=== PATIENT | female | born 1995 | race Caucasian/White ===

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

== ENCOUNTER 2017-08-23 08:55 | Outpatient (CLI) | END 2017-08-23 10:05 | disposition home or self-care (01) ==

== ENCOUNTER 2017-09-01 23:41 | Inpatient (IN) | END 2017-09-03 15:08 | disposition home or self-care (01) | DRG 775 ==

== ENCOUNTER 2018-11-30 10:04 | Emergency (ER) | payer OTHER ==
[~2018-11-30] VITALS: Wt 72.0 kg
[~2018-11-30 10:04] MED LIST: PREN-93 PO
[2018-11-30] MEDS ORDERED: SOD CHLORIDE 0.9% 1,000 ML IV STA (10:56)
[2018-11-30] MEDS ORDERED: METOCLOPRAMIDE 10 MG INJ IV STA (10:56)
[2018-11-30 14:13] VITALS: BP 117/75; PULSE 107; RESP 17
[2018-11-30] MEDS ORDERED: ACETAMINOPHEN 500 MG TAB PO STA (14:15)
[2018-11-30] MEDS ORDERED: ACET500C5 PO (14:16)
[2018-11-30] MEDS ORDERED: METO10TA92 PO (14:17)
--- NOTE | 2018-11-30 14:30 | ERD ---
ER Documentation Chief Complaint Chief Complaint NAUSEA WITH VOMITING X 3 DAYS; 13 WEEKS PREG HPI Patient is a 23-year-old female, G3, P2, approximately 13 weeks , who presents to the ER for concerns of nausea and vomiting which started 3 days ago. Patient's children are also being seen today for similar symptoms. Patient daughter also has diarrhea. Patient has a fevers or chills. Patient states she has trouble keeping fluids down secondary to vomiting. Patient denies any vaginal bleeding. Patient denies any fluid loss. Patient denies any chest pain, shortness of breath, recent travel, recent surgeries. Patient states she has been feeling her heart racing for the last 2 days. Does not recall the name of her [employer]. ROS All systems reviewed and are negative except as per history of present illness. Medications Home Meds Active Scripts Metoclopramide* (Reglan*) 10 Mg Tablet, 10 MG PO Q6 PRN for NAUSEA AND/OR VOMITING, #10 TAB Prov:SAE OLIVAS PA-C 11/30/18 Acetaminophen* (Tylophen*) 500 Mg Capsule, 1 CAP PO Q6H PRN for PAIN AND OR ELEVATED TEMP, #20 CAP Prov:SAE OLIVAS PA-C 11/30/18 Reported Medications Vit No.124/Iron/FA ( Vitamin Tablet) 1 Each Tablet, 1 EACH PO DAILY, TAB 08/23/17 Allergies Allergies: Coded Allergies: Penicillins (Verified Allergy, Unknown, 09/01/17) PMhx/Soc Medical and Surgical Hx: pt denies Surgical Hx Hx Respiratory Disorders: Yes (ASTHMA) Hx Alcohol Use: No Hx Substance Use: No Hx Tobacco Use: No FmHx Family History: No diabetes Physical Exam Vitals Vital Signs Date Temp Pulse Resp B/P (MAP) Pulse Ox O2 O2 Flow FiO2 Time Delivery Rate 11/30/18 98.7 107 17 117/75 100 Room Air 14:13 (89) 11/30/18 99.6 118 13:40 11/30/18 99.2 13:20 11/30/18 100.0 132 18 132/78 99 10:07 (96) Physical Exam GENERAL: Well-developed, well-nourished female. Appears in no acute distress. Speaking in full sentences. HEAD: Normocephalic, atraumatic. EYES: Pupils are equally reactive bilaterally. EOMs grossly intact. No conjunctival erythema. NECK: Supple. No meningismus. Normal range of motion of the neck. LUNG: Clear to auscultation bilaterally. No rhonchi, wheezing, rales or coarse breath sounds. HEART: Tachycardic. No murmurs, rubs, gallops. Equal pulses in bilateral upper extremities. ABDOMEN. Soft, nontender, and nondistended. Positive bowel sounds in all four quadrants. No rebound tenderness, no guarding. (-) McBurney's point tenderness. No CVA tenderness. EXTREMITIES: Equal pulses bilaterally. No peripheral clubbing, cyanosis or edema. No unilateral leg swelling. NEUROLOGIC: Alert and oriented. Moving all four extremities without any difficulty. Normal speech. Steady gait. SKIN: Normal color. Warm and dry. No rashes or lesions. Result Diagram: 11/30/18 1140 11/30/18 1140 Results 24 hrs Laboratory Tests Test 11/30/18 11:40 White Blood Count 8.5 10^3/ul Red Blood Count 4.23 10^6/ul Hemoglobin 13.7 g/dl Hematocrit 41.0 % Mean Corpuscular Volume 96.9 fl Mean Corpuscular Hemoglobin 32.4 pg Mean Corpuscular Hemoglobin Concent 33.4 g/dl Red Cell Distribution Width 11.8 % Platelet Count 181 10^3/UL Mean Platelet Volume 10.5 fl Immature Granulocytes % 0.400 % Neutrophils % 92.0 % Lymphocytes % 4.7 % Monocytes % 2.8 % Eosinophils % 0.0 % Basophils % 0.1 % Nucleated Red Blood Cells % 0.0 /100WBC Immature Granulocytes # 0.030 10^3/ul Neutrophils # 7.8 10^3/ul Lymphocytes # 0.4 10^3/ul Monocytes # 0.2 10^3/ul Eosinophils # 0.0 10^3/ul Basophils # 0.0 10^3/ul Nucleated Red Blood Cells # 0.0 10^3/ul Urine Color YELLOW Urine Clarity SLIGHTLY CLOUDY Urine pH 5.0 Urine Specific [place] 1.023 Urine Ketones 2+ mg/dL Urine Nitrite NEGATIVE mg/dL Urine Bilirubin NEGATIVE mg/dL Urine Urobilinogen NEGATIVE mg/dL Urine Leukocyte Esterase NEGATIVE Cindy/ul Urine Microscopic RBC 2 /HPF Urine Microscopic WBC 1 /HPF Urine Squamous Epithelial Cells MODERATE /HPF Urine Bacteria FEW /HPF Urine Mucus MANY /HPF Urine Hemoglobin NEGATIVE mg/dL Urine Glucose NEGATIVE mg/dL Urine Total Protein NEGATIVE mg/dl Sodium Level 141 mmol/L Potassium Level 3.6 mmol/L Chloride Level 103 mmol/L Carbon Dioxide Level 25 mmol/L Anion Gap 13 Blood Urea Nitrogen 6 mg/dl Creatinine 0.52 mg/dl Est Glomerular Filtrat Rate mL/min > 60 mL/min Glucose Level 112 mg/dl Calcium Level 9.8 mg/dl Total Bilirubin 1.2 mg/dl Direct Bilirubin 0.00 mg/dl Indirect Bilirubin 1.2 mg/dl Aspartate Amino Transf (AST/SGOT) 22 IU/L Alanine Aminotransferase (ALT/SGPT) 17 IU/L Alkaline Phosphatase 72 IU/L Total Protein 7.9 g/dl Albumin 4.4 g/dl Globulin 3.50 g/dl Albumin/Globulin Ratio 1.25 Lipase 115 U/L Current Medications Medications Dose Sig/Rito Start Time Status Last (Trade) Ordered Route PRN Stop Time Admin Dose Reason Admin Sodium 1,000 ml @ Q1H STAT 11/30/18 DC 11/30/18 Chloride 1,000 mls/hr IV 10:56 11:48 11/30/18 11:55 10 mg ONCE STAT 11/30/18 DC 11/30/18 Metoclopramid IV 10:56 11:48 e HCl 11/30/18 10:58 (Reglan) 1,000 mg ONCE STAT 11/30/18 DC 11/30/18 Acetaminophen PO 14:15 14:21 (Tylenol 11/30/18 14:16 Tab) Procedures/MDM ED COURSE: The patient was stable throughout ED course. I kept the patient and/or family informed of laboratory and diagnostic imaging results throughout the ED course. EKG: Read by Dr. Ford attending physician. EKG shows sinus tachycardia at a rate of 109 No arrhythmias, acute ST elevations or T wave changes were noted. DIAGNOSTIC IMAGING: Read by radiologist. DIAGNOSTIC IMAGING REPORT Patient: ABEBA ESPINO : 1995 Age: 23 Sex: F MR #: [id number] DOS: 11/30/18 1341 Ordering MD: SAE OLIVAS PA-C Location: [facility] Room/Bed: PROCEDURE: US OB. CLINICAL INDICATION: Vomiting, pelvic pain TECHNIQUE: Transabdominal views of the pelvis are available for review. COMPARISON: No prior studies are available for comparison. FINDINGS: There is a single intrauterine gestation with the crown-rump length measuring 7.1 cm, corresponding to a gestational age of 13 weeks and 2 days. The heart rate is noted at 171 bpm. The ovaries are not visualized. There is no free fluid. RPTAT: AA IMPRESSION: Single live intrauterine with an estimated gestational age of 13 weeks and 2 days, based on ultrasound measurements. RAZ based on ultrasound measurements is 06/05/19. .Luis Alberto Chen MD, MD Date Time Electronically viewed and signed by .Luis Alberto Chen MD, on 11/30/2018 14:06 .S/ CC: SAE OLIVAS PA-C [id number] MEDICATIONS GIVEN: Tylenol, IV fluids, Reglan Patient tolerated medication well with no adverse reactions. Patient reported improvement in pain. MEDICAL DECISION MAKING: This this is a 23-year-old female, G3, P2, presents the ER for concerns of nausea and vomiting for last 3 days. Patient's children are also being seen today for similar symptoms. Vital signs were reviewed. Patient noted to have low-grade temperature 100 Fahrenheit on arrival. Patient's initial pulse was noted to be 132. Patient was nontoxic in appearance overall. Low suspicion for sepsis. IV line was established. Blood work was obtained. CBC showed no evidence of systemic infection or anemia. CMP stat showed no significant electrolyte abnormalities, acidosis, alkalosis, renal injury or liver failure. UA did show 2+ ketones likely due to dehydration. Pelvic ultrasound showed single live uterine gestation of 13 weeks and 2 days. Patient denies any vaginal bleeding. Low suspicion for spontaneous . Patient symptoms are likely due to viral GI illness. Patient will be given prescription for Tylenol and Reglan for home. After receiving IV rehydration therapy, patient's pulse was noted to be downtrending. Patient denied any chest pain, shortness of breath, recent air travel, recent surgeries. Low suspicion for PE at this time. Upon reexamination, patient reported improvement in in symptoms. Patient advised to stay hydrated. Patient advised to follow-up with her [employer] in the next 1 to 2 days. At this time for the patient's presentation is most consistent with GI viral illness. Low suspicion for, severe electrolyte abnormalities, severe dehydration, sepsis, spontaneous , acute coronary syndrome, AAA, mesenteric ischemia, lower lobe pneumonia, DKA, bowel perforation, cholecystitis, choledocholithiasis, ascending cholangitis, hepatic abscess, pancreatitis, PUD, gastritis, GERD, splenic rupture, diverticulitis, UTI, pyelonephritis, nephrolithiasis, appendicitis, constipation, , ectopic , PID, ovarian torsion or tubo-ovarian abscess. Patient was nontoxic, [id number] prior to discharge. Discussed case with supervising physician Dr. Ford who agrees that treatment and management was appropriate. PRESCRIPTIONS: Tylenol, Reglan DISCHARGE: At this time, patient is stable for discharge and outpatient management. I have instructed the patient to follow-up with his/her primary care physician in 1-2 days. I have instructed the patient to promptly return to the ER at any time for any new or worsening symptoms including increased pain, nausea, vomiting, diarrhea, fever, weakness or LOC. The patient and/or family expressed understanding of and agreement with this plan. All questions were answered. Home care instructions were provided. . Disclaimer: Inadvertent spelling and grammatical errors are likely due to EHR/dictation software use and do not reflect on the overall quality of patient care. Also, please note that the electronic time recorded on this note does not necessarily reflect the actual time of the patient encounter. Departure Diagnosis: Primary Impression: Nausea and vomiting Vomiting type: unspecified Vomiting Intractability: unspecified Qualified Codes: R11.2 - Nausea with vomiting, unspecified Additional Impressions: Dehydration Weeks of gestation: unspecified Qualified Codes: Z34.90 - Encounter for supervision of normal , unspecified, unspecified trimester Condition: Fair Patient Instructions: Nausea and Vomiting-Adult Referrals: [facility] (PCP) Additional Instructions: Call your primary care doctor TOMORROW for an appointment during the next 1-2 days.See the doctor sooner or return here if your condition worsens before your appointment time. SAE OLIVAS PA-C Nov 30, 2018 14:30
== END 2018-11-30 14:27 | disposition home or self-care (01) ==
LOC: FTE 10:04
DX: O21.9 Vomiting of pregnancy, unspecified (principal); O99.511 Diseases of the respiratory system complicating pregnancy, first trimester; J45.909 Unspecified asthma, uncomplicated; E86.0 Dehydration; O99.281 Endocrine, nutritional and metabolic diseases complicating pregnancy, first trimester; Z3A.13 13 weeks gestation of pregnancy
CPT/HCPCS: 36415; 76801; 80053; 81001; 83690; 85025; 93005; 96361; 96374; J2765; J7030; Z7502; Z7610; 81003